=== PATIENT | female | born 1985 | race African-American/Black ===

== ENCOUNTER 2017-12-12 09:26 | Emergency (ER) | payer BC, OTHER ==
[2017-12-12] MEDS ORDERED: Ondansetron ODT 4 MG TAB ONE (09:31)
[2017-12-12] MEDS ORDERED: Oxymetazoline HCl 0.05% ( 15 ML ) ONE (10:46)
[2017-12-12] MEDS ORDERED: Ketorolac Tromethamine 30 MG/ML VIAL ONE (10:46)
[2017-12-12] MEDS ORDERED: Metoclopramide HCl 10 MG/2 ML VIAL ONE (10:46)
== END 2017-12-12 12:30 | disposition home or self-care (01) ==
LOC: ERS 09:26
DX: R51 Headache (principal); I10 Essential (primary) hypertension; F41.9 Anxiety disorder, unspecified
CPT/HCPCS: 96365; 96375; J1885; J2765; Q0162